=== PATIENT | female | born 1995 | race Two or more races ===

== ENCOUNTER 2024-04-07 20:16 | Emergency (ER) | payer MEDICAID, OTHER ==
[~2024-04-07] VITALS: Ht 157.5 cm; Wt 61.9 kg
[2024-04-07 20:55] LABS: Urine Amorphous Crystal FEW /hpf (None Seen); Urine Bacteria FEW /hpf (None Seen); Urine Blood Negative /uL (Negative); Urine Clarity Clear (Clear); Urine Color Colorless (Yellow); Urine Protein, UAD Negative (Negative); Urine Specific Gravity 1.008 (1.001-1.035); Urine Urobilinogen Normal (Negative); Urine WBC 3 /hpf (0 - 5)
[2024-04-07 21:04] LABS: Basophils # (auto) 0 10 ^3/uL (0-0.2); Basophils % (auto) 0.2 % (0.0-2.0); Eosinophils # (auto) 0.1 10 ^3/uL (0-0.8); Eosinophils % (auto) 0.5 % (0.0-7.0); Hematocrit 41.3 % (36.0-46.0); Hemoglobin 14.1 g/dL (12.2-16.2); Lymphocytes # (auto) 1.6 10 ^3/uL (0.4-5.4); Lymphocytes % (auto) 13.7 % (10.0-50.0); Mean Corpuscular Hemoglobin 31.3 pg (28.0-32.0); Mean Corpuscular Hgb Conc. 34.1 g/dL (32.0-36.0); Mean Corpuscular Volume 91.7 fL (80.0-100.0); Monocytes # (auto) 0.9 10 ^3/uL (0-1.3); Monocytes % (auto) 7.7 % (0.0-12.0); Neutrophils # (auto) 9.1 10 ^3/uL (1.6-8.6); Neutrophils % (auto) 77.9 % (37.0-80.0); Platelet Count (auto) 267 10^3/uL (140-450); Red Blood Cells 4.51 10^6/uL (4.0-5.20); White Blood Cell 11.6 10^3/uL (4.4-10.8)
[2024-04-07 21:24] LABS: Alanine Aminotransferase 42 U/L (7-40); Albumin 4.7 g/dL (3.2-4.8); Alkaline Phosphatase 91 U/L (46-116); Anion Gap 7 (5-15); Aspartate Aminotransferase 31 U/L (13-40); BUN/Creatinine Ratio 9.3 (10.0-20.0); Blood Urea Nitrogen 5 mg/dL (9-23); Calcium 9.8 mg/dL (8.7-10.4); Carbon Dioxide 20 mmol/L (20-30); Chloride 111 mmol/L (98-107); Glucose 107 mg/dL (74-106); Potassium 3.6 mmol/L (3.5-5.1); Sodium 138 mmol/L (136-145)
[2024-04-07 21:25] LABS: Bilirubin, Total 0.4 mg/dL (0.2-1.0); Total Protein 7.5 g/dL (5.7-8.2)
[2024-04-07] MEDS ORDERED: CEPH500C PO (22:53)
[2024-04-07] MEDS ORDERED: METO-281 PO (22:53)
[2024-04-07] MEDS ORDERED: ACET-1304 PO (22:53)
[2024-04-07] MEDS: ACETAMINOPHEN 500 MG TAB PO ONE (23:00)
[2024-04-07] MEDS: SODIUM CHLORIDE 0.9% 1,000 ML IV ONE (23:00)
[2024-04-07 23:01] VITALS: BP 120/63; PULSE 69; RESP 18; TEMP 98.4; O2SAT 100
[2024-04-07] MEDS: cefTRIAXone 1GM/50ML D5W 50 ML IV ONE (23:09)
[2024-04-07] MEDS: METOCLOPRAMIDE HCL 5MG/ml INJ 2ml VIAL IV ONE (23:40)
== END 2024-04-08 00:31 | disposition home or self-care (01) ==
LOC: ER 20:16
DX: O99.611 Diseases of the digestive system complicating pregnancy, first trimester (principal); R10.2 Pelvic and perineal pain; O26.891 Other specified pregnancy related conditions, first trimester; N39.0 Urinary tract infection, site not specified; Z3A.13 13 weeks gestation of pregnancy
CPT/HCPCS: 36415; 76801; 80053; 81001; 84702; 85025; 96365; 96375; 99285; J0696; J2765; J7030

== ENCOUNTER 2024-10-12 14:35 | Observation (INO) | payer MEDICAID ==
[~2024-10-12 14:35] MED LIST: ACET-1304 PO; CEPH500C PO; METO-281 PO
--- NOTE | 2024-10-12 15:43 | DVH ---
CLINICAL HISTORY: Term . COMPARISON: Prior ultrasound dated 04/07/2024. TECHNIQUE: biophysical profile was performed. Transabdominal sonographic images of the fetus we re obtained. FINDINGS: The fetus is in cephalic position. heart rate measures 141 BPM. Amniotic fluid index measures 9.2 cm. The placenta is anterior/left lateral in position, without evidence of previa or abr uption visualized. BPP profile is an overall score of 8/8, with 2/2 points for breathing, with at least one episode of breathing over a 30 second duration during a 30 minute observation, 2/2 points for m ovements, with 3 or more discrete body or limb movements, 2/2 points for tone, with one or more episodes of extremity extension with return to flexion, or opening and closing of hand, and 2/ 2 points for amniotic fluid, with at least 1 pocket of amniotic fluid that measures 2 cm in 2 perpend icular planes. IMPRESSION: BPP score of 8/8.
--- NOTE | 2024-10-13 09:25 | DVHDS2 ---
Physician Discharge Progress N Final Diagnosis: term preg labor check 40wks Operations or Procedures: Operations or Procedures nst,sono Consultations: Consultations seen by odette Condition on Discharge: Good Disposition: Home Discharge Instructions: Diet: Regular Activity: No Restrictions, As Tolerated Medications: na Follow Up Care: Specialist: 2d Discharge Statement: "Patient was advised to return to the ER or call 911 if any headaches, dizziness, shortness of breath, chest pain, abdominal pain, bleeding, fevers, or worsening of medical condition. Patient was counseled about treatment plan, medications, possible side effects, patientverbalized understanding. All questions were answered to the best of my ability. This discharge took greater then 30 minutes in planning, reviewing documentation, counseling the patient, and discussing with other team members." Visit Coding OBGYN Date of Service: Oct 13, 2024 Billing Provider: BROOKLYN NEFF DO FIRE ALARM TECHNICIAN Common Visit Codes: [id number] INP/OBS CARE (HIGH) FIRE ALARM TECHNICIAN Consultation Codes: 09217-[id number] CONSULT <40MIN FIRE ALARM TECHNICIAN Procedure Codes: 01566-06- NON-STRESS TEST BROOKLYN NEFF DO Oct 13, 2024 09:25
[2024-10-15] MEDS ORDERED: DOCU-94 PO (17:33)
[2024-10-15] MEDS ORDERED: HYDR-4072 PO (17:33)
[2024-10-15] MEDS ORDERED: IBUP-1456 PO (17:33)
== END 2024-10-12 16:16 | disposition home or self-care (01) ==
LOC: UNDOADMOB 14:35 → LDRP 14:35
PROVIDERS: ADMIT Obstetrics & Gynecology; ATTEND Obstetrics & Gynecology
DX: O48.0 Post-term pregnancy (principal); Z98.890 Other specified postprocedural states; Z79.899 Other long term (current) drug therapy; Z3A.40 40 weeks gestation of pregnancy
CPT/HCPCS: 59025; 76819; 81002; 94760; G0378; 76818

== ENCOUNTER 2024-10-14 07:29 | Observation (INO) | payer MEDICAID ==
--- NOTE | 2024-10-14 09:11 | DVH ---
CLINICAL HISTORY: . Vaginal bleeding. COMPARISON: US BIOPHYSICAL PROFILE on DOS: 10/12/24 TECHNIQUE: biophysical profile was performed. Transabdominal sonographic images of the fetus we re obtained. FINDINGS: The fetus is in cephalic position. heart rate measures 153 BPM. Amniotic fluid index measures 9.9 cm. The placenta is anterior in position without evidence of placenta previa or abruptio n. BPP profile is an overall score of 8/8, with 2/2 points for breathing, with at least one episode of breathing over a 30 second duration during a 30 minute observation, 2/2 points for m ovements, with 3 or more discrete body or limb movements, 2/2 points for tone, with one or more episodes of extremity extension with return to flexion, or opening and closing of hand, and 2/ 2 points for amniotic fluid, with at least 1 pocket of amniotic fluid that measures 2 cm in 2 perpend icular planes. IMPRESSION: BPP score of 8/8.
--- NOTE | 2024-10-15 08:34 | DVHDS2 ---
Physician Discharge Progress N Final Diagnosis: bleeding r/o labor Operations or Procedures: Operations or Procedures nst,sono Condition on Discharge: Good Disposition: Home Discharge Instructions: Diet: Regular Activity: No Restrictions, As Tolerated Medications: na Follow Up Care: Specialist: 1d Discharge Statement: "Patient was advised to return to the ER or call 911 if any headaches, dizziness, shortness of breath, chest pain, abdominal pain, bleeding, fevers, or worsening of medical condition. Patient was counseled about treatment plan, medications, possible side effects, patientverbalized understanding. All questions were answered to the best of my ability. This discharge took greater then 30 minutes in planning, reviewing documentation, counseling the patient, and discussing with other team members." Visit Coding OBGYN Date of Service: Oct 15, 2024 Billing Provider: BROOKLYN NEFF DO MANUAL WINDER Common Visit Codes: [id number] INP/OBS CARE(HIGH) MANUAL WINDER Procedure Codes: 93904-15- NON-STRESS TEST BROOKLYN NEFF DO Oct 15, 2024 08:34
[2024-10-15] MEDS ORDERED: HYDR-4072 PO (17:33)
[2024-10-15] MEDS ORDERED: DOCU-94 PO (17:33)
[2024-10-15] MEDS ORDERED: IBUP-1456 PO (17:33)
== END 2024-10-14 09:23 | disposition home or self-care (01) ==
LOC: LDRP 07:29
PROVIDERS: ADMIT Obstetrics & Gynecology; ATTEND Obstetrics & Gynecology
DX: O48.0 Post-term pregnancy (principal); O46.93 Antepartum hemorrhage, unspecified, third trimester; Z98.890 Other specified postprocedural states; Z79.899 Other long term (current) drug therapy; Z3A.40 40 weeks gestation of pregnancy
CPT/HCPCS: 59025; 76819; 81002; 94760; G0378

== ENCOUNTER 2024-10-15 04:58 | Inpatient (IN) | payer MEDICAID ==
[~2024-10-15] VITALS: Ht 144.8 cm; Wt 76.2 kg
[2024-10-15] MEDS ORDERED: BUTORPHANOL TARTRATE 2 MG/1 ML VIAL IV PRN ×2 (05:30)
[2024-10-15] MEDS ORDERED: LIDOCAINE 2%HCL (LOCAL ANESTH.) INJ 20ML MDV IJ PRN (05:30)
[2024-10-15 06:06] LABS: Basophils # (auto) 0 10 ^3/uL (0-0.2); Basophils % (auto) 0.4 % (0.0-2.0); Eosinophils # (auto) 0.1 10 ^3/uL (0-0.8); Eosinophils % (auto) 0.7 % (0.0-7.0); Hematocrit 41.2 % (36.0-46.0); Hemoglobin 14.4 g/dL (12.2-16.2); Lymphocytes % (auto) 18.4 % (10.0-50.0); Mean Corpuscular Hemoglobin 32.8 pg (28.0-32.0); Mean Corpuscular Volume 93.8 fL (80.0-100.0); Monocytes % (auto) 9.4 % (0.0-12.0); Neutrophils # (auto) 7.7 10 ^3/uL (1.6-8.6); Neutrophils % (auto) 71.1 % (37.0-80.0); Platelet Count (auto) 242 10^3/uL (140-450); Red Blood Cells 4.39 10^6/uL (4.0-5.20); Red Cell Distribution Width 14.9 % (11.8-14.3); White Blood Cell 10.9 10^3/uL (4.4-10.8)
[2024-10-15 06:11] LABS: Urine Bacteria FEW /hpf (None Seen); Urine Blood 3+ /uL (Negative); Urine Clarity Clear (Clear); Urine Color Colorless (Yellow); Urine Protein, UAD Negative (Negative); Urine Specific Gravity 1.002 (1.001-1.035); Urine Squamous Epithelial Cell FEW /hpf (<5); Urine Urobilinogen Normal (Negative); Urine WBC 2 /HPF (0-5)
[2024-10-15] MEDS: NALOXONE HCL 0.4 MG/ML VIAL IV ONE (06:15)
[2024-10-15] MEDS: ePHEDrine SULFATE 50 MG/ML AMP IV ONE (06:15)
[2024-10-15 06:19] LABS: Alanine Aminotransferase 26 U/L (7-40); Albumin 4.5 g/dL (3.2-4.8); Anion Gap 11 (5-15); Aspartate Aminotransferase 39 U/L (13-40); Bilirubin, Total 0.4 mg/dL (0.2-1.0); Blood Urea Nitrogen 9 mg/dL (9-23); Calcium 10.1 mg/dL (8.7-10.4); Glucose 97 mg/dL (74-106); Potassium 3.8 mmol/L (3.5-5.1); Sodium 138 mmol/L (136-145); Total Protein 7.5 g/dL (5.7-8.2)
[2024-10-15 06:35] LABS: Alkaline Phosphatase 361 U/L (46-116); Carbon Dioxide 19 mmol/L (20-31); Chloride 108 mmol/L (98-107)
[2024-10-15 06:35] LABS: Amphetamine Screen, Urine Neg (NEGATIVE); Barbiturate Scree,Urine Neg (NEGATIVE); Benzodiazephine Screen, Urine Neg (NEGATIVE); Cannabinoid Screen, Urine Neg (NEGATIVE); Cocaine Screen, Urine Neg (NEGATIVE); Opiate Scree,Urine Neg (NEGATIVE); Phencyclidine Screen, Urine Neg (NEGATIVE)
[2024-10-15] MEDS: LACTATED RINGER'S 1,000 ML IV SCH ×2 (06:36→15:46)
--- NOTE | 2024-10-15 06:40 | DVHHP2 ---
OB CC & HPI Date Date of Admission: Oct 15, 2024 Patient Identification: : 1 Para: 0 EDC: Oct 12, 2024 EGA: 40w 3d Chief Complaints: Reason for admission: active labor Admission Nurse Assessment Rev: Yes History of Present Complaints 29yo G1,0000 with IUP at 40w 3d presents to place with h/o uterine contractions that started at 3am today. She reports normal movements, bloody show, no leakage of fluid, BOBO, vision changes or epigastric pain Past Medical History Cardiac: No pertinent Hx Pulmonary: No pertinent Hx Central Nervous System: No pertinent Hx GI: No pertinent Hx Hemotology/Oncology: No pertinent Hx Hepatobiliary: No pertinent Hx Psychiatric: No pertinent Hx Musculoskeletal: No pertinent Hx Rheumotologic: No pertinent Hx Infectious Disease: No peritnent Hx ENT: No pertinent Hx Renal/: No pertinent Hx Endocrine: No pertinent Hx Dermatology: No pertinent Hx Past Surgical History: No pertinent Hx OB History OB History Care: Good Care Ultrasounds: Normal mid trimester US Obstetrical Complications: None Medical Complications: None Allergies: Coded Allergies: NO KNOWN ALLERGIES (Unverified , 04/07/24) Home Meds Active Scripts Ibuprofen (Ibuprofen) 800 Mg Tab, 800 MG PO TID PRN for 4 Days, #12 TAB Prov:BROOKLYN CHAIREZ 10/15/24 Hydrocodone-Acetaminophen (Hydrocodone/Acetaminophen 10-325 mg) 1 Tab Tab, 1 TAB PO Q6HPRN PRN for 7 Days, #28 TAB Prov:BROOKLYN CHAIREZ 10/15/24 Docusate Sodium (Colace) 100 Mg Cap, 1 CAP PO BID, #60 CAP 2 Refills Prov:BROOKLYN CHAIREZ 10/15/24 Metoclopramide Hcl (Reglan) 10 Mg Tab, 10 MG PO Q6HP PRN, #20 TAB prn nausea/vomiting Prov:GIANNI CABRERA MD 04/07/24 Acetaminophen (Tylenol Extra Strength) 500 Mg Tab, 1000 MG PO Q6HP PRN, #30 TAB prn pain Prov:GIANNI CABRERA MD 04/07/24 Cephalexin Monohydrate (Cephalexin) 500 Mg Cap, 1 CAP PO QID for 10 Days, #40 CAP Prov:GIANNI CABRERA MD 04/07/24 Current Medications Current Medications Medications (Trade) Dose Ordered Sig/Chidi Route PRN Reason Start Time Stop Time Status Last Admin Lactated Ringer's 1,000 ml @ 125 mls/hr Q8H IV 10/15/24 05:30 Witch Antonia (Tucks) 1 pad PRN PRN TOP PERINEAL AREA DISCOMFORT 10/15/24 05:30 Sodium Lauryl Sulfate (Phisoderm) 240 ml PRN PRN TOP PERINEAL AREA DISCOMFORT 10/15/24 05:30 Benzocaine (Dermoplast) 1 applic PRN PRN TOP PERINEAL AREA DISCOMFORT 10/15/24 05:30 Butorphanol Tartrate (Stadol Injection) 1 mg Q4HPRN PRN IV MODERATE PAIN (4-6 PAIN SCALE) 10/15/24 05:30 Butorphanol Tartrate (Stadol Injection) 2 mg Q4HPRN PRN IV SEVERE PAIN (7-10 PAIN SCALE) 10/15/24 05:30 Lidocaine HCl (Xylocaine) 20 ml ONCE PRN IJ PERINEAL AREA DISCOMFORT 10/15/24 05:30 Family & Social History Family/Social History Past Family/Social History: Non pertinent Blood Type: O+ Rubella: unknown RPR/VDRL: Unknown GBS Status: Negative HBsAG: Unknown Review of Systems Constitutional: No symptom reported Ears, Nose, & Throat: No symptom reported Eyes: No symptom reported Pulmonary/Respiratory: No symptom reported Cardiovascular: No symptom reported Gastrointestinal: No symptom reported Genitourinary: No symptom reported Musculoskeletal: No symptom reported Skin: No symptom reported Psychiatric: No symptom reported Endocrine: No symptom reported Hemotologic/Lymphatic: No symptom reported OB Admission Exam Physical Exam HEENT: Nasal Mucosa Normal, Eyes non-injected, Oropharynx Normal, Moist Membranes, EOMI Heart: Rhythm Normal Lungs: Clear Abdomen: Gravid (and non-tender to palpation) Extremities: Normal Reflexes: Normal Cervical Dilatation: 4cm Effacement: 75% Station: -1 Membranes: Intact Accelerations: Accelerations Present Decelerations: No Decelerations Fci Variability: Average (6-25) Contractions on Admission: 6-10 Minutes Apart Date/Time Contractions Began: 10/15/24 0300 Frequency of Contractions: Q 5mins Duration: 80 Intensity: Moderate OB Plan Plan Admitting Diagnosis: Labor Plan: Expectant Management Other Plan: Admit to Birthplace Routine L&D admission labs & orders Continuous EFM Intrauterine resuscitation PRN Labor analgesia PRN Frequent position change to facilitate labor Expectant management with supportive care Anticipate Will consult with Dr Chairez PRN Visit Coding OBGYN Date of Service: Oct 15, 2024 Billing Provider: MARGARETTE JAIMES CNM NATIONAL FACILITIES MANAGER Common Visit Codes: 96316-[id number] INP/OBS CARE (HIGH) NATIONAL FACILITIES MANAGER Procedure Codes: 85563-39- NON-STRESS TEST MARGARETTE JAIMES CNM Oct 15, 2024 06:40
[2024-10-15 06:44] LABS: INR 0.92 (0.9-1.15); Prothrombin Time 9.8 sec (9.3-11.8)
[2024-10-15] MEDS: LACT. RINGERS/OXYTOCIN 20UNITS 500 ML IV ONE ×2 (06:45→07:15)
[2024-10-15] MEDS: ROPIVACAINE HCL 200 ML ONE (07:47)
[2024-10-15] MEDS: DERMOPLAST 60ML BOTTLE TOP PRN (07:48)
[2024-10-15] MEDS: PHISODERM TOP SOLN 240ML BTL TOP PRN (07:48)
[2024-10-15] MEDS: WITCH HAZEL-GLYCERIN PAD TOP PRN (07:48)
--- NOTE | 2024-10-15 08:31 | DVHPN2 ---
Chief Complaints Patient reports: No new complaints Nursing reports: No new complaints Objective Medications Current Medications Medications (Trade) Dose Ordered Sig/Chidi Route PRN Reason Start Time Stop Time Status Last Admin Benzocaine (Dermoplast) 1 applic PRN PRN TOP PERINEAL AREA DISCOMFORT 10/15/24 05:30 10/15/24 07:48 Butorphanol Tartrate (Stadol Injection) 1 mg Q4HPRN PRN IV MODERATE PAIN (4-6 PAIN SCALE) 10/15/24 05:30 Butorphanol Tartrate (Stadol Injection) 2 mg Q4HPRN PRN IV SEVERE PAIN (7-10 PAIN SCALE) 10/15/24 05:30 Lactated Ringer's 1,000 ml @ 125 mls/hr Q8H IV 10/15/24 05:30 10/15/24 06:36 Lidocaine HCl (Xylocaine) 20 ml ONCE PRN IJ PERINEAL AREA DISCOMFORT 10/15/24 05:30 Sodium Lauryl Sulfate (Phisoderm) 240 ml PRN PRN TOP PERINEAL AREA DISCOMFORT 10/15/24 05:30 10/15/24 07:48 Witch Antonia (Tucks) 1 pad PRN PRN TOP PERINEAL AREA DISCOMFORT 10/15/24 05:30 10/15/24 07:48 Others ve-4-5cm/90/-1 Studies Laboratory Tests 10/15/24 05:42 Test 10/15/24 05:42 Range/Units Serum Glucose 97 74-106 mg/dL Ass/Plan Assessment labor Plan supportive care Visit Coding OBGYN Date of Service: Oct 15, 2024 Billing Provider: BROOKLYN NEFF DO INTERNET SALES DIRECTOR Common Visit Codes: 24436-JWS/OBS SAME DATE (HIGH) INTERNET SALES DIRECTOR Procedure Codes: 33806-25- NON-STRESS TEST BROOKLYN NEFF DO Oct 15, 2024 08:31
--- NOTE | 2024-10-15 11:48 | DVHPN2 ---
Chief Complaints Patient reports: No new complaints Nursing reports: No new complaints Objective Medications Current Medications Medications (Trade) Dose Ordered Sig/Chidi Route PRN Reason Start Time Stop Time Status Last Admin Benzocaine (Dermoplast) 1 applic PRN PRN TOP PERINEAL AREA DISCOMFORT 10/15/24 05:30 10/15/24 07:48 Butorphanol Tartrate (Stadol Injection) 1 mg Q4HPRN PRN IV MODERATE PAIN (4-6 PAIN SCALE) 10/15/24 05:30 Butorphanol Tartrate (Stadol Injection) 2 mg Q4HPRN PRN IV SEVERE PAIN (7-10 PAIN SCALE) 10/15/24 05:30 Lactated Ringer's 1,000 ml @ 125 mls/hr Q8H IV 10/15/24 05:30 10/15/24 06:36 Lidocaine HCl (Xylocaine) 20 ml ONCE PRN IJ PERINEAL AREA DISCOMFORT 10/15/24 05:30 Oxytocin 1,000 ml @ 6 ml/hr Q24H IV 10/15/24 11:45 UNV Sodium Lauryl Sulfate (Phisoderm) 240 ml PRN PRN TOP PERINEAL AREA DISCOMFORT 10/15/24 05:30 10/15/24 07:48 Witch Antonia (Tucks) 1 pad PRN PRN TOP PERINEAL AREA DISCOMFORT 10/15/24 05:30 10/15/24 07:48 Others ve-4.5cm/70/-2 Studies Laboratory Tests 10/15/24 05:42 Test 10/15/24 05:42 Range/Units Serum Glucose 97 74-106 mg/dL Ass/Plan Assessment labor Plan rec epidural start pitocin Visit Coding OBGYN Date of Service: Oct 15, 2024 Billing Provider: BROOKLYN NEFF DO VETERINARY MILK SPECIALIST Common Visit Codes: 24467-KMZ/OBS SAME DATE (HIGH) VETERINARY MILK SPECIALIST Procedure Codes: 04649-98- NON-STRESS TEST BROOKLYN NEFF DO Oct 15, 2024 11:48
[2024-10-15] MEDS: LACT. RINGERS/OXYTOCIN 20UNITS 1,000 ML IV SCH (12:43)
--- NOTE | 2024-10-15 14:31 | DVHPN2 ---
Chief Complaints Patient reports: No new complaints Nursing reports: No new complaints Objective Medications Current Medications Medications (Trade) Dose Ordered Sig/Chidi Route PRN Reason Start Time Stop Time Status Last Admin Benzocaine (Dermoplast) 1 applic PRN PRN TOP PERINEAL AREA DISCOMFORT 10/15/24 05:30 10/15/24 07:48 Butorphanol Tartrate (Stadol Injection) 1 mg Q4HPRN PRN IV MODERATE PAIN (4-6 PAIN SCALE) 10/15/24 05:30 Butorphanol Tartrate (Stadol Injection) 2 mg Q4HPRN PRN IV SEVERE PAIN (7-10 PAIN SCALE) 10/15/24 05:30 Lactated Ringer's 1,000 ml @ 125 mls/hr Q8H IV 10/15/24 05:30 10/15/24 06:36 Lidocaine HCl (Xylocaine) 20 ml ONCE PRN IJ PERINEAL AREA DISCOMFORT 10/15/24 05:30 Oxytocin 1,000 ml @ 6 ml/hr Q24H IV 10/15/24 11:45 10/15/24 12:43 Sodium Lauryl Sulfate (Phisoderm) 240 ml PRN PRN TOP PERINEAL AREA DISCOMFORT 10/15/24 05:30 10/15/24 07:48 Witch Antonia (Tucks) 1 pad PRN PRN TOP PERINEAL AREA DISCOMFORT 10/15/24 05:30 10/15/24 07:48 Others ve-4.5cm/90/-2 Studies Laboratory Tests 10/15/24 05:42 Test 10/15/24 05:42 Range/Units Serum Glucose 97 74-106 mg/dL Ass/Plan Assessment labor Plan arom done clear fld ,iupc placed cont with pitocin Visit Coding OBGYN Date of Service: Oct 15, 2024 Billing Provider: BROOKLYN NEFF DO EMERGENCY DEPARTMENT AIDE Common Visit Codes: 04329-[facility]/OBS SAME DATE (HIGH) EMERGENCY DEPARTMENT AIDE Procedure Codes: 39279-51- NON-STRESS TEST BROOKLYN NEFF DO Oct 15, 2024 14:31
[2024-10-15] MEDS: LACTATED RINGER'S 1,000 ML IV ONE (14:45)
[2024-10-15] MEDS: ceFAZolin 2 GM/D5W50ml 50 ML IV ONE (15:26)
[2024-10-15] MEDS ORDERED: MORPHINE SULF PF 5 MG/10 ML VIAL ONE (15:27)
[2024-10-15] MEDS ORDERED: oxyTOCIN 10 UNIT/ML 10ML VIAL ONE (15:27)
[2024-10-15] MEDS ORDERED: LIDOCAINE 2% (LOCAL ANESTH.) PF 5ml SDV ONE (15:32)
[2024-10-15] MEDS: SODIUM CHLORIDE 0.9% 200 ML IUPC ONE (15:36)
[2024-10-15] MEDS: SODIUM CHLORIDE 0.9% 1,000 ML IUPC SCH (15:36)
[2024-10-15] MEDS ORDERED: PROPOFOL 10 MG/ML 20 ML IV ONE ×2 (15:54→16:22)
[2024-10-15] MEDS ORDERED: MIDAZOLAM HCL 2MG/2ML 2ml VIAL (1mg/ml) ONE (15:55)
[2024-10-15] MEDS ORDERED: fentaNYL CITRATE 100 MCG/2 ML VL ONE (15:57)
[2024-10-15] MEDS ORDERED: MEPERIDINE HCL (25 MG/ML) 1ML VIAL ONE (15:57)
[2024-10-15] MEDS: CARBOPROST TROMETHAMINE 250 MCG/1ML VIAL IM ONE ×6 (16:00→18:09)
[2024-10-15] MEDS ORDERED: ONDANSETRON HCL 4 MG/2 ML VIAL ONE (16:02)
[2024-10-15] MEDS ORDERED: ePHEDrine SULFATE 50 MG/ML AMP ONE (16:04)
[2024-10-15] MEDS ORDERED: PHENYLEPHRINE HCL 10 MG/ML VL ONE (16:13)
--- NOTE | 2024-10-15 17:23 | DVHOP2 ---
Operative Report DATE OF OPERATION: 10/15/24 PREOPERATIVE DIAGNOSES: Term IN LABOR,FTP SUSPECT CPD POSTOPERATIVE DIAGNOSES: SAME,UTERINE ATONY SURGEON: Marifer Chairez D.O./FERNANDO ANESTHESIOLOGIST: ABIGAIL TYPE OF ANESTHESIA : GENERAL CONSENT: The patient was informed of the risks and benefits of the procedure. The patient was informed of the risks and benefits of the procedure. These include but are not limited to , complications of anesthesia, postoperative infection, incomplete relief of symptoms, recurrence of symptoms, damage to blood vessels, nerves and tendons, deep venous thrombosis, pulmonary embolism and possible need for repeat surgery in the future. FINDINGS: Baby [F with Apgars of [8] and [9]. Grossly normal appearing tubes and ovaries.UTERINE ATONY NOTED,MUSCULAR AREA OF LEFT CORNUAL REGION OF UETRUS WAS EXTREMELY THIN WALLED PROCEDURES: Primary low transverse section. PROCEDURE IN DETAIL: The patient was taken to the operating room. She already had an epidural in place. She was then placed in supine position with a leftward tilt. A Pfannenstiel skin incision was made 2 cm above the symphysis pubis. This incision was carried to the underlying layer of fascia. The fascia was nicked in the midline. The incision was extended laterally. The superior aspect of the fascial incision was grasped and elevated . The same procedure was done to the inferior aspect of the fascial incision. The rectus muscles were then in the midline. Peritoneum was identified and entered. Peritoneal incision was extended superiorly and inferiorly with good visualization of the bladder. Bladder blade was inserted. Vesicouterine peritoneum was identified and entered. Lower uterine segment was incised in a transverse fashion. The was delivered from vertex presentation. Infant was baby [F] with Apgars [8] and [9]. Placenta was then removed manually. Uterus was exteriorized and cleared of all clots and debris.UTERUS WAS EXTREMELY BOGGY HEMOBATE X1 WAS GIVEN FOLLOWED BY 3 MORE HEMOBATE IM .TXA WAS ORDERED TO BE STARTEDIN RECOVERY RM.OF NOET IS EXTREME THIN WALL NOTICED POST LEFT LATERAL ASPECT OF UTERUS . The incision was repaired using 0 Vicryl in a double-layered fashion. No bleeding was noted. Uterus was then returned to the abdomen. The gutters were cleared off all clots and debris. Peritoneum was closed using 0 Vicryl, fascia was closed using 0 Maxon, and skin was closed using lisa. The patient tolerated the procedure well. She was taken to the recovery room in stable condition. ESTIMATED BLOOD LOSS: Estimated blood loss was noted to be 1000 mL. Visit Coding OBGYN Date of Service: Oct 15, 2024 Billing Provider: MARIFER CHAIREZ DO REINFORCING STEEL ERECTOR Common Visit Codes: 81533-[id number] INP/OBS CARE(HIGH) REINFORCING STEEL ERECTOR Procedure Codes: 83554-[id number] DELIVERY ONLY MARIFER CHAIREZ DO Oct 15, 2024 17:23
[2024-10-15] MEDS ORDERED: ONDANSETRON HCL 4 MG/2 ML VIAL IV PRN (17:30)
[2024-10-15] MEDS: LACT. RINGERS/OXYTOCIN 20UNITS 1,000 ML IV ONE (17:30)
[2024-10-15] MEDS: GUM (CHEWING) 1 GUM CHEW CHEW ONE (17:30)
[2024-10-15] MEDS ORDERED: MORPHINE SULFATE 4 MG/ML SYR/VIAL IV PRN (17:30)
--- NOTE | 2024-10-15 17:30 | POSTOP ---
Post-Operative Note Post-Operative Note Preop Diagnosis TERM PREG WITH FTP,SUSPECT CPD Postop Diagnosis: same,uterine atony Operation performed pltcs Specimen BABY GIRL APAGARS 8-9,WT6-9 Anesthesia: General Anesthesiologist: nuygen Blood Loss(fluid mgmt) 1000ml Surgeon Brooklyn Chairez White Hat Hacker john Implant na Complications & Mgmt none Additional Remarks h and p [id number] Date 10/15/24 Time 17:24 Visit Coding OBGYN Date of Service: Oct 15, 2024 Billing Provider: BROOKLYN CHAIREZ DO WAITER/WAITRESS COCKTAIL LOUNGE Common Visit Codes: [id number] INP/OBS CARE(HIGH) WAITER/WAITRESS COCKTAIL LOUNGE Procedure Codes: 87432-[id number] DELIVERY ONLY BROOKLYN CHAIREZ DO Oct 15, 2024 17:30
[2024-10-15] MEDS ORDERED: DOCU-94 PO ×2 (17:33)
[2024-10-15] MEDS ORDERED: HYDR-4072 PO ×2 (17:33)
[2024-10-15] MEDS ORDERED: IBUP-1456 PO ×2 (17:33)
--- NOTE | 2024-10-15 17:37 | DVHHP ---
CHIEF COMPLAINT: Failure to progress, suspect CPD. HISTORY OF PRESENT ILLNESS: The patient is a 29-year-old 1, para 0 with EDC 10/12/2024, estimated gestational age of 40+ weeks, admitted for labor. The patient was given Cytotec. She progressed to 4 cm. She was started on Pitocin, despite which she did not dilate. Subsequently due to estimated weight of 717 and the patient being extremely fatigued, CPD was suspected. The patient did not have any progression past 4 cm. The patient was taken for primary . Risks, complication, indication discussed with the patient. Options reviewed. All questions answered. The patient wishes to proceed with planned procedure. PAST MEDICAL HISTORY: None. PAST SURGICAL HISTORY: None. SOCIAL HISTORY: None. FAMILY HISTORY: None. OBSTETRIC AND GYNECOLOGIC HISTORY: Blood type O positive, rubella unknown. REVIEW OF SYSTEMS: Consistent with HPI. PHYSICAL EXAMINATION: VITAL SIGNS: Stable, afebrile. HEENT: Within normal limits. CARDIOVASCULAR: Regular rate and rhythm. LUNGS: Clear to auscultation. BREASTS: Symmetrical. No masses. ABDOMEN: Gravid. PELVIC: 4, 90, -2. EXTREMITIES: No clubbing, cyanosis or edema. IMPRESSION: * Intrauterine at 40+ weeks, failure to progress. * Suspect cephalopelvic disproportion. PLAN: Primary low transverse section. Informed consent obtained. Risks and complications of surgery including infection, bleeding, hematoma formation, injury to bowel, bladder, surrounding organs, possibility of DVT, pulmonary embolism, risk of anesthesia discussed with the patient. Options reviewed. All questions answered. The patient fully understands. She wishes to proceed with planned procedure. DO PRAVIN Blevins TID: [id number] RECEIPT: [id number]
[2024-10-15 17:45] VITALS: PULSE 82; RESP 18; O2SAT 100
[2024-10-15] MEDS ORDERED: HYDROmorphone HCL 2 MG/ML VL/or syr IV PRN (17:45)
[2024-10-15] MEDS: SUCCINYLCHOLINE CHLORIDE 20 MG/ML 10ML VIAL IV ONE (17:58)
[2024-10-15] MEDS: METHYLERGONOVINE MALEATE 0.2 MG/ML AMP IM ONE (17:59)
[2024-10-15 18:00] VITALS: PULSE 85; RESP 18; O2SAT 100
[2024-10-15] MEDS ORDERED: ACETAMINOPHEN IV 1000 MG/100ML (10MG/ML) IV PRN (18:00)
[2024-10-15] MEDS: ONDANSETRON HCL 4 MG/2 ML VIAL IV ONE ×2 (18:01→18:19)
[2024-10-15] MEDS: HYDROmorphone HCL 2 MG/ML VL/or syr IV PRN (18:04)
[2024-10-15] MEDS: TRANEXAMIC ACID 10 ML ONE (18:05)
[2024-10-15] MEDS: DIPHENOXYLATE W/ATROPINE 2.5 MG TAB ONE (18:06)
[2024-10-15] MEDS: MEPERIDINE HCL (25 MG/ML) 1ML VIAL IV PRN (18:12)
[2024-10-15] MEDS: DIPHENOXYLATE W/ATROPINE 2.5 MG TAB PO SCH (18:14)
[2024-10-15 19:00] VITALS: BP 144/84; PULSE 111; RESP 18; TEMP 99.1; O2SAT 96
[2024-10-15] MEDS: ACETAMINOPHEN IV 1000 MG/100ML (10MG/ML) IV PRN (21:54)
[2024-10-15 22:30] VITALS: TEMP 99.9
[2024-10-15] MEDS: ceFAZolin 1GM/50ML 50 ML IV SCH (22:37)
[2024-10-15 23:00] VITALS: BP 113/71; PULSE 100; RESP 16; TEMP 99.7; TEMP 99.9; O2SAT 96
[2024-10-15 23:21] LABS: Basophils # (auto) 0 10 ^3/uL (0-0.2); Basophils % (auto) 0.1 % (0.0-2.0); Eosinophils # (auto) 0 10 ^3/uL (0-0.8); Hematocrit 32.5 % (36.0-46.0); Hemoglobin 10.9 g/dL (12.2-16.2); Lymphocytes # (auto) 1.7 10 ^3/uL (0.4-5.4); Lymphocytes % (auto) 10.6 % (10.0-50.0); Mean Corpuscular Hemoglobin 31.4 pg (28.0-32.0); Mean Corpuscular Hgb Conc. 33.5 g/dL (32.0-36.0); Mean Corpuscular Volume 93.5 fL (80.0-100.0); Monocytes # (auto) 1.2 10 ^3/uL (0-1.3); Monocytes % (auto) 7.7 % (0.0-12.0); Neutrophils # (auto) 12.8 10 ^3/uL (1.6-8.6); Neutrophils % (auto) 81.6 % (37.0-80.0); Nucleated Red Blood Cells % 0.1 %; Platelet Count (auto) 201 10^3/uL (140-450); Red Blood Cells 3.48 10^6/uL (4.0-5.20); White Blood Cell 15.7 10^3/uL (4.4-10.8)
[2024-10-15 23:30] VITALS: TEMP 99.6
[2024-10-15] MEDS ORDERED: ceFAZolin 1GM/50ML 50 ML IV SCH (23:30)
--- NOTE | 2024-10-16 02:49 | DVHPN2 ---
Progress Note Date Seen: Oct 16, 2024 Subjective S: Lochia minimal. Self position changes in be. pain relieved with IV analgesics. Not passing flatus and no BM yet. & formula feeding w/o problem vital signs Vital Sign Date Time Temp Pulse Resp B/P (MAP) Pulse Ox O2 Delivery O2 Flow Rate FiO2 10/15/24 23:30 99.6 99.6 10/15/24 23:00 100 16 113/71 (85) 96 10/15/24 18:38 Room Air 10/15/24 18:00 0 10/15/24 18:00 100 Total Intake and Output 10/15/24 10/15/24 10/16/24 15:00 23:00 07:00 Output Total 200 ml 150 ml Balance -200 ml -150 ml medications Current Medications Medications Dose Ordered Sig/Chidi Route Start Time Stop Time Status Last Admin Dose Admin Bryce Knight 1 pad PRN PRN TOP 10/15/24 05:30 10/15/24 07:48 1 PAD Sodium Lauryl Sulfate 240 ml PRN PRN TOP 10/15/24 05:30 10/15/24 07:48 240 ML Benzocaine 1 applic PRN PRN TOP 10/15/24 05:30 10/15/24 07:48 1 APPLIC Butorphanol Tartrate 1 mg Q4HPRN PRN IV 10/15/24 05:30 Cancel Butorphanol Tartrate 2 mg Q4HPRN PRN IV 10/15/24 05:30 Cancel Lidocaine HCl 20 ml ONCE PRN IJ 10/15/24 05:30 Cancel Lactated Ringer's 1,000 ml @ 125 mls/hr Q8H IV 10/15/24 14:45 10/15/24 21:15 125 MLS/HR Diphenoxylate HCl/ Atropine 5 mg Q12HR PO 10/15/24 22:00 10/15/24 18:14 5 MG Morphine Sulfate 2 mg Q4HP PRN IV 10/15/24 17:30 Cancel Ondansetron HCl 4 mg Q4HP PRN IV 10/15/24 17:30 Hydromorphone HCl 1 mg Q3HPRN PRN IV 10/15/24 17:45 Cancel Cefazolin Sodium 50 ml @ 100 mls/hr Q8HR IV 10/15/24 22:00 10/15/24 22:37 100 MLS/HR Acetaminophen 1,000 mg Q8H PRN IV 10/15/24 21:00 10/15/24 21:54 1,000 MG laboratory and microbiology Laboratory Tests 10/15/24 23:01 10/15/24 05:42 Test 10/15/24 05:42 Range/Units Serum Glucose 97 74-106 mg/dL Objective A&O x3 NAD. Afebrile, VSS Chest: heart and lung sounds normal. Breasts: Nipples intact w/o cracks or soreness Abdomen: normal BS, soft, non-tender, no rebound or guarding, fundus firm @ U- 1, Lower abdominal Incision site with Sylke dressing on, open to fresh air, same clean, dry and intact. No edema, erythema or induration Extremities: no edema or tenderness Lochia - minimal Assessment/Plan 29 yo now Post operative & ppd #1 s/p Primary Section doing well. Blood Type: O Rh: Positive Breast and formula feeding Rubella Immune Pain control with medications Diet: Clear liquids; advance as tolerated Bowel regimen: Increase fluid intake and fiber in diet, Laxative PRN d/c Wright and Ambulate Plan discussed with: Patient Visit Coding OBGYN Date of Service: Oct 16, 2024 Billing Provider: MARGARETTE JAIMES CNM HANDS PARTER Common Visit Codes: [id number] INP/OBS CARE(HIGH) MARGARETTE JAIMES CNM Oct 16, 2024 02:49
[2024-10-16 03:00] VITALS: BP 116/67; PULSE 91; RESP 18; TEMP 98.9; O2SAT 99
[2024-10-16] MEDS ORDERED: MORPHINE SULFATE 4 MG/ML SYR/VIAL IV PRN (03:00)
[2024-10-16] MEDS: ONDANSETRON HCL 4 MG/2 ML VIAL IV PRN (03:13)
[2024-10-16] MEDS: HYDROmorphone HCL 2 MG/ML VL/or syr IV PRN (03:15)
[2024-10-16 07:00] VITALS: BP 138/61; PULSE 99; RESP 18; TEMP 98.5; O2SAT 95
[2024-10-16] MEDS ORDERED: BISACODYL 10 MG RECT SUPP PR PRN (08:30)
[2024-10-16 08:55] LABS: Basophils # (auto) 0 10 ^3/uL (0-0.2); Basophils % (auto) 0.1 % (0.0-2.0); Eosinophils # (auto) 0 10 ^3/uL (0-0.8); Eosinophils % (auto) 0.2 % (0.0-7.0); Hematocrit 29.6 % (36.0-46.0); Lymphocytes # (auto) 1.9 10 ^3/uL (0.4-5.4); Lymphocytes % (auto) 13.6 % (10.0-50.0); Mean Corpuscular Hemoglobin 31.8 pg (28.0-32.0); Mean Corpuscular Hgb Conc. 33.8 g/dL (32.0-36.0); Mean Corpuscular Volume 94.2 fL (80.0-100.0); Monocytes # (auto) 0.9 10 ^3/uL (0-1.3); Monocytes % (auto) 6.6 % (0.0-12.0); Neutrophils # (auto) 11.3 10 ^3/uL (1.6-8.6); Neutrophils % (auto) 79.5 % (37.0-80.0); Platelet Count (auto) 198 10^3/uL (140-450); Red Blood Cells 3.14 10^6/uL (4.0-5.20); Red Cell Distribution Width 14.9 % (11.8-14.3); White Blood Cell 14.2 10^3/uL (4.4-10.8)
[2024-10-16] MEDS ORDERED: HYDROcodone-ACET 10/325MG TAB PO PRN (09:00)
[2024-10-16] MEDS: DOCUSATE SOD 100 MG CAP PO SCH (10:21)
[2024-10-16] MEDS: IBUPROFEN 800 MG TAB PO PRN (10:37)
[2024-10-16 10:45] VITALS: BP 116/48; PULSE 81; RESP 17; TEMP 98.6; O2SAT 97
[2024-10-16] MEDS: SIMETHICONE 80 MG CHEWABLE TABLET PO SCH (11:58)
[2024-10-16] MEDS: HYDROcodone-ACET 5/325MG TAB PO PRN (14:33)
[2024-10-16 15:02] VITALS: BP 100/53; PULSE 80; RESP 16; TEMP 98.4; O2SAT 98
[2024-10-16 18:50] VITALS: BP 107/65; PULSE 75; RESP 18; TEMP 98.5; O2SAT 97
[2024-10-16 23:00] VITALS: BP 108/58; PULSE 67; RESP 18; TEMP 98.6; O2SAT 97
[2024-10-17 03:00] VITALS: BP 112/74; PULSE 78; RESP 18; TEMP 98.8; O2SAT 97
--- NOTE | 2024-10-17 05:09 | DVHDS2 ---
Discharge Summary Date of Admission Oct 15, 2024 at 05:20 Date of Discharge: Oct 17, 2024 Admitting Diagnosis Term in labor Labs/Diagnostic Data: Laboratory Results Test 10/16/24 08:00 10/15/24 05:42 10/15/24 05:40 White Blood Count 14.2 10^3/uL (4.4-10.8) Red Blood Count 3.14 10^6/uL (4.0-5.20) Hemoglobin 10.0 g/dL (12.2-16.2) Hematocrit 29.6 % (36.0-46.0) Mean Corpuscular Volume 94.2 fL (80.0-100.0) Mean Corpuscular Hemoglobin 31.8 pg (28.0-32.0) Mean Corpuscular Hemoglobin Concent 33.8 g/dL (32.0-36.0) Red Cell Distribution Width 14.9 % (11.8-14.3) Platelet Count 198 10^3/uL (140-450) Mean Platelet Volume 7.9 fL (6.9-10.8) Neutrophils (%) (Auto) 79.5 % (37.0-80.0) Lymphocytes (%) (Auto) 13.6 % (10.0-50.0) Monocytes (%) (Auto) 6.6 % (0.0-12.0) Eosinophils (%) (Auto) 0.2 % (0.0-7.0) Basophils (%) (Auto) 0.1 % (0.0-2.0) Neutrophils # (Auto) 11.3 10 ^3/uL (1.6-8.6) Lymphocytes # (Auto) 1.9 10 ^3/uL (0.4-5.4) Monocytes # (Auto) 0.9 10 ^3/uL (0-1.3) Eosinophils # (Auto) 0 10 ^3/uL (0-0.8) Basophils # (Auto) 0 10 ^3/uL (0-0.2) Nucleated Red Blood Cells 0.0 % Prothrombin Time 9.8 sec (9.3-11.8) Prothrombin Time INR 0.92 (0.9-1.15) Activated Partial Thromboplast Time 28.0 SEC (24.5-34.5) Sodium Level 138 mmol/L (136-145) Potassium Level 3.8 mmol/L (3.5-5.1) Chloride Level 108 mmol/L (98-107) Carbon Dioxide Level 19 mmol/L (20-31) Anion Gap 11 (5-15) Blood Urea Nitrogen 9 mg/dL (9-23) Creatinine 0.69 mg/dL (0.550-1.02) Glomerular Filtration Rate Calc 120 mL/min (>90) BUN/Creatinine Ratio 13.0 (10.0-20.0) Serum Glucose 97 mg/dL (74-106) Calcium Level 10.1 mg/dL (8.7-10.4) Total Bilirubin 0.4 mg/dL (0.2-1.0) Aspartate Amino Transferase (AST) 39 U/L (13-40) Alanine Aminotransferase (ALT) 26 U/L (7-40) Alkaline Phosphatase 361 U/L (46-116) Total Protein 7.5 g/dL (5.7-8.2) Albumin 4.5 g/dL (3.2-4.8) Treponema pallidum Antibody Non-reactive (Negative) Hepatitis C Antibody Negative (Negative) Urine Color Colorless (Yellow) Urine Clarity Clear (Clear) Urine pH 7.0 (5.0-9.0) Urine Specific [place] 1.002 (1.001-1.035) Urine Protein Negative (Negative) Urine Ketones Negative (Negative) Urine Blood 3+ /uL (Negative) Urine Nitrite Negative (Negative) Urine Bilirubin Negative (Negative) Urine Urobilinogen Normal mg/dL (Negative) Urine Leukocyte Esterase Trace /uL (Negative) Urine RBC <1 /hpf (0 - 4) Urine Microscopic WBC 2 /HPF (0-5) Urine Squamous Epithelial Cells Few /hpf (<5) Urine Bacteria Few /hpf (None Seen) Urine Glucose Normal mg/dL (Normal) Urine Opiates Screen Neg (NEGATIVE) Urine Fentanyl Screen Neg (NEGATIVE) Urine Barbiturates Screen Neg (NEGATIVE) Urine Phencyclidine Screen Neg (NEGATIVE) Urine Amphetamines Screen Neg (NEGATIVE) Urine Benzodiazepines Screen Neg (NEGATIVE) Urine Cocaine Screen Neg (NEGATIVE) Urine Cannabinoids Screen Neg (NEGATIVE) Other Laboratory Tests 10/16/24 08:00 10/15/24 05:42 Brief Hx & Hospital Course: Arrest of labor s/p 1' C/section Thin walled uterus, moderate atony Normal PP course Precipitous drop in H/H, asymptomatic and stable Condition at Discharge: Stable Final Diagnosis/Problems List Arrest of labor s/p 1' C/Section Secondary Diagnosis: Precipitous drop in H/H due to acute blood loss (surgery) Discharge Disposition: Home Discharge Instruct/Medications Diet: Regular Activity: Light activity Activity comment: Pelvic rest x 6 wk Follow Up/Referral: [address] Chairez Discharge Statement: "Patient was advised to return to the ER or call 911 if any headaches, dizziness, shortness of breath, chest pain, abdominal pain, bleeding, fevers, or worsening of medical condition. Patient was counseled about treatment plan, medications, possible side effects, patientverbalized understanding. All questions were answered to the best of my ability. This discharge took greater then 30 minutes in planning, reviewing documentation, counseling the patient, and discussing with other team members." ASSESSMENT ASSESSMENT Assessment same,uterine atony Visit Coding OBGYN Date of Service: Oct 17, 2024 Billing Provider: ADILIA ROSS DO [employer] Common Visit Codes: 73987-OBY/OBS DISCH DAY <30MIN ADILIA ROSS DO Oct 17, 2024 05:09
[2024-10-17 07:00] VITALS: BP 111/67; PULSE 80; RESP 16; TEMP 98.7; O2SAT 96
[2024-10-17 11:00] VITALS: BP 104/62; PULSE 75; RESP 17; TEMP 98.7; O2SAT 98
[2024-10-17 15:00] VITALS: BP 116/71; PULSE 80; RESP 17; TEMP 98.9; O2SAT 98
[2024-10-17 19:30] VITALS: BP 128/80; PULSE 78; RESP 18; TEMP 98.2; O2SAT 97
[2024-10-17] MEDS: HYDROcodone-ACET 5/325MG TAB PO PRN (20:03)
[2024-10-18 00:06] LABS: Chlamydia Trachomatis, NAA Negative (Negative); Neisseria gonorrhoeae, NAA Negative (Negative)
== END 2024-10-17 21:30 | disposition home or self-care (01) | DRG 540 ==
LOC: LDRP 04:58 → OBSVTOIN 05:20 → LDRP 05:51
PROVIDERS: ADMIT Obstetrics & Gynecology; ATTEND Obstetrics & Gynecology
PROC: 10D00Z1 Extraction of Products of Conception, Low, Open Approach (ICD-10-PCS; principal; 2024-10-15 16:30)
DX: O48.0 Post-term pregnancy (principal); R71.0 Precipitous drop in hematocrit; O62.1 Secondary uterine inertia; Z37.0 Single live birth; Z3A.40 40 weeks gestation of pregnancy
CPT/HCPCS: 36415; 62282; 80053; 80307; 81001; 81002; 85025; 85610; 85730; 86780; 86803; 86850; 86900; 86901; 94760; 96360; 96361; 96365; 96366; G0378; J0131; J0330; J2003; J2250; J2405; J2590; J2704